=== PATIENT | male | born 1955 ===

== ENCOUNTER 2018-03-28 06:03 | Inpatient (IN) | payer OTHER ==
[~2018-03-28] VITALS: Ht 172.7 cm; Wt 88.5 kg
[~2018-03-28 06:03] MED LIST: PROTONIX40 MG PO
[2018-03-28] MEDS ORDERED: COZAAR25 MG (06:35)
[2018-03-28] MEDS ORDERED: ASPIR 8181 MG (06:36)
[2018-03-28] MEDS ORDERED: TOPROL XL25 M1 (06:36)
[2018-03-28] MEDS ORDERED: LIPITOR40 MG (06:36)
--- NOTE | 2018-03-28 06:42 | NUR ---
SE RECIBE PTE EL CUAL REFIERE PRESENTAR TOS SECA, OZ DOLOR DE GARGANTA Y EN EXTREMIDADES. PTE INDICA QUE LA TOS Y LOS ESCALOFRIOS NO LO KAIA DESCANSAR. NO SE AUSCULTA SIBILANCIA EN PTE.
--- NOTE | 2018-03-28 08:42 | NUR ---
.KIA EVALUA PACIENTE Y ORDENA TRATAMIENTO MEDICO DEL CUALSE ORIENTA PACIENTE Y FAMILIAR.PACIENTE REFIERE ENTENDER. SE COLECTAN MUESTRAS DE LABORATORIOS MERISSA ORDEN MEDICA SIGUIENDO MEDIDAS ASEPTICAS.
--- NOTE | 2018-03-28 10:50 | NUR ---
KIA ADMITE A PACIENTE A AREA DE OBSERVACION PARA CONTINUIDAD DE TRATAMIENTO POR MEDICO A CARGO DE DICHA AREA.
[2018-04-04] MEDS ORDERED: MEDROLPACK PO (11:59)
[2018-04-04] MEDS ORDERED: XOPENEX0.63 MG/3 IH (11:59)
== END 2018-04-04 21:26 | disposition home or self-care (01) | DRG 195 ==
LOC: ER 06:03 → SURH 18:20
PROVIDERS: ADMIT Internal Medicine
PROC: 8E0ZXY6 Isolation (ICD-10-PCS; principal; 2018-03-28)
PROC: 4A033R1 Measurement of Arterial Saturation, Peripheral, Percutaneous Approach (ICD-10-PCS; 2018-03-28)
PROC: 3E0F7GC Introduction of Other Therapeutic Substance into Respiratory Tract, Via Natural or Artificial Opening (ICD-10-PCS; 2018-03-28)
PROC: BB24ZZZ Computerized Tomography (CT Scan) of Bilateral Lungs (ICD-10-PCS; 2018-03-28)
PROC: B246ZZZ Ultrasonography of Right and Left Heart (ICD-10-PCS; 2018-03-28)
DX: J16.8 Pneumonia due to other specified infectious organisms (principal); I11.9 Hypertensive heart disease without heart failure; I25.10 Atherosclerotic heart disease of native coronary artery without angina pectoris; J11.1 Influenza due to unidentified influenza virus with other respiratory manifestations; R09.02 Hypoxemia